=== PATIENT | male | born 1955 | race Caucasian/White ===

== ENCOUNTER 2021-11-23 18:44 | Inpatient (IN) | payer MEDICARE, SELFPAY ==
[2021-11-23] VITALS (20 sets, daily range): BP systolic 107–178; BP diastolic 65–105; PULSE 70–108; RESP 10–21; TEMP 36.3–36.6; O2SAT 90–98; BMI 33.5
--- NOTE | 2021-11-23 18:45 | XRR_ITS ---
PROCEDURE INFORMATION: Exam: XR Chest Exam date and time: 11/23/2021 6:51 PM Age: 66 years old Clinical indication: Pain; Angina pectoris; Additional info: Stemi TECHNIQUE: Imaging protocol: Radiologic exam of the chest. Views: 1 view. COMPARISON: CR Chest 1 [place] [id number] 02/03/2016 6:39 PM FINDINGS: Lungs: There are normal lung volumes without confluent interstitial or airspace opacities. Age-related interstitial prominence is seen in the lungs. Pleural spaces: There are no pleural effusions or pneumothorax. Heart/Mediastinum: The heart size is normal. There is a mildly tortuous thoracic aorta. The trachea is in the midline. Bones/joints: Small degenerative osteophytes and mild degenerative disc disease changes are seen in the lower thoracic spine. Soft tissues: Multiple external densities are seen overlying the chest, limiting assessment. XR/XR chest 1V portable [id number] IMPRESSION: No chest radiographic evidence of acute cardiopulmonary disease.
--- NOTE | 2021-11-23 18:45 | ECG_ITS ---
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 Measurements Intervals [place] Rate: 104 P: 27 [place]: 145 QRS: 34 QRSD: 127 T: 0 QT: 345 QTc: 454 Interpretive Statements SINUS TACHYCARDIA WITH OCCASIONAL VENTRICULAR PREMATURE COMPLEXES INFERIOR MYOCARDIAL INFARCTION , POSSIBLY ACUTE [40+ ms Q WAVE AND/OR ST/T ABNORMALITY IN II/aVF] ACUTE DC Compared to ECG 02/04/2016 02:05:10 Ventricular premature complex(es) now present Myocardial infarct finding now present Sinus bradycardia no longer present Right bundle-branch block no longer present T-wave abnormality no longer present Possible ischemia no longer present Electronically Signed On 11-25-2021 8:01:38 CDT by Carin Maria M.D. [id number]
--- NOTE | 2021-11-23 18:52 | W.ED.CHESTPA ---
HPI - Chest Pain General: Chief Complaint: Chest Pain Stated Complaint: STEMI Time Seen by Provider: 11/23/21 18:47 Source: patient and EMS History of Present Illness: 66-year-old male with a history of coronary disease. He presents with chest discomfort since around 10 AM this morning. It started at rest. He tells me he has a history of 7 stents in his heart, the last one was put in here in 2014. He was called in as a STEMI alert from the field, with ST elevation in leads II, III and aVF on his EKG. his pain has eased after nitroglycerin and aspirin in the field. He still having some tightness. MD complaint: chest pain Pertinent past history: coronary artery disease Onset (ago): hour(s) Timing of current episode: constant Prior episodes: Yes Onset: during rest Pain location: substernal Quality: tightness Relieving factors: nitroglycerin Associated symptoms: Reports dyspnea and nausea; Deny abdominal pain, diaphoresis, fever(s), leg edema or vomiting Review of Systems Const: Denies: fever(s) or diaphoresis ENMT: Denies: throat pain Card: Reports: chest pain Resp: Reports: dyspnea; Denies: productive cough or non-productive cough GI: Reports: nausea and diarrhea; Denies: abdominal pain or vomiting PFS ED PFSH: Medical History CAD (coronary artery disease) Hypertension Family History Other Diabetes Social History Smoking and tobacco status: current every day smoker Physical Exam Const: GENERAL APPEARANCE: cooperative and ill appearing HENMT: COMMON NORMALS: normocephalic, atraumatic and Normal external nose present HEAD & SCALP: normocephalic and atraumatic NOSE: Normal external nose present Eye: COMMON NORMALS: Equal, round and reactive pupils present and EOMs intact bilaterally PUPIL: Yes Equal, round and reactive pupils present Chest: CHEST: Yes Symmetrical chest wall rise Resp: COMMON NORMALS: normal respiratory effort, No use of accessory muscles and clear to auscultation bilaterally AUSCULTATION: clear to auscultation bilaterally Cardio: COMMON NORMALS: regular rhythm RATE: tachycardic RHYTHM: regular rhythm GI: COMMON NORMALS: Normal to inspection, nondistended, normoactive bowel sounds present, Soft to palpation and non-tender PALPATION: Yes Soft to palpation Extremity: GENERAL: Yes edema (Mild) Neuro: RINA COMA SCALE: document GCS findings [facility] coma scale eye opening: Spontaneous Rina coma scale verbal response: Orientated Rina coma scale motor response: Obey commands [facility] coma scale total score: 15 Course Consultations: Consultation #1: damaris Vital Signs: Vital signs: Vital Signs Temperature 97.4 F L 11/23/21 20:00 Pulse Rate 75 11/23/21 21:11 Respiratory Rate 18 11/23/21 21:00 Blood Pressure 123/72 11/23/21 21:00 Pulse Oximetry 93 11/23/21 21:00 Oxygen Delivery Me thod 11/23/21 21:00 MDM - Chest Pain Medical Decision Making 66-year-old gentleman with a history of coronary disease, having an anterior ST elevation [place]. Cardiology was consulted on the patient's arrival by phone. STEMI alert had been called prior to arrival. Cath team is on their way in. the patient remains stable currently. His heart rate is 100, sinus. Blood pressure is 161/95 saturations are 99% on room air. His respirations are 22 on the monitor. Labs are pending. Lab Data : 11/23/21 18:33 11/23/21 18:33 Laboratory Results WBC 11.0 10^3/uL (4.0-10.0) H 11/23/21 18:33 RBC 5.45 10^6/uL (4.1-5.3) H 11/23/21 18:33 Hgb 15.5 g/dL (11.7-16.6) 11/23/21 18:33 Hct 47.3 % (42.0-52.0) 11/23/21 18:33 MCV 86.8 fl (80-94) 11/23/21 18:33 MCH 28.4 pg (28.0-34.0) 11/23/21 18: MCHC 32.8 g/dL (30.0-36.0) 11/23/21 18:33 RDW 14.1 % (12.1-15.1) 11/23/21 18:33 Plt Count 315 10^3/cmm (130-400) 11/23/21 18: MPV 10.8 fL (7.4-10.4) H 11/23/21 18:33 Neut % (Auto) 70.1 % 11/23/21 18: Lymph % (Auto) 19.9 % 11/23/21 18: [place] % (Auto) 8.2 % 11/23/21 18: Eos % (Auto) 0.8 % 11/23/21 18: Baso % (Auto) 0.5 % 11/23/21 18: Neut # (Auto) 7.73 10^3/uL (1.8-7.7) H 11/23/21 18: Lymph # (Auto) 2.2 10^3/uL (0.8-4.8) 11/23/21 18: [place] # (Auto) 0.9 10^3/uL (0.2-0.9) 11/23/21 18: Eos # (Auto) 0.1 10^3/uL (0.0-0.8) 11/23/21 18: Baso # (Auto) 0.1 10^3/uL (0.0-0.1) 11/23/21 18: Nucleated RBC % (auto) 0 % 11/23/21 18: Nucleated RBCs # 0.0 /100WBC 11/23/21 18: PT 12.10 SECONDS (12.1-14.9) 11/23/21 18: INR 0.87 (0.8-1.2) 11/23/21 18: APTT 36.8 SECONDS (23.9-36.7) H 11/23/21 18:33 Sodium 133 mmol/L (136-145) L 11/23/21 18:33 Potassium 4.4 mmol/L (3.5-5.1) 11/23/21 18: Chloride 94 mmol/L (98-107) L 11/23/21 18: Carbon Dioxide 22 mmol/L (22-29) 11/23/21 18:33 Anion Gap 21.4 (5-19) H 11/23/21 18:33 BUN 7 mg/dL (8-23) L 11/23/21 18:33 Creatinine 0.8 mg/dL (0.7-1.2) 11/23/21 18:33 GFR Calculation 97.0 mL/min (90-130) 11/23/21 18:33 Glucose 171 mg/dL (65-115) H 11/23/21 18:33 POC Glucose 173 mg/dL (70-110) H 11/23/21 18:54 Calculated Osmolality 278 mOsm/kg (285-295) L 11/23/21 18:33 Calcium 9.7 mg/dL (8.5-10.5) 11/23/21 18:33 Total Bilirubin 0.6 mg/dL (0.15-1.2) 11/23/21 18:33 AST 40 U/L (0-40) 11/23/21 18:33 ALT 29 U/L (0-41) 11/23/21 18:33 Alkaline Phosphatase 116 U/L (40-130) 11/23/21 18:33 Troponin T Baseline 53 ng/L (0-15) H 11/23/21 18:33 NT-Pro-B Natriuret Pep 129 pg/mL (0-125) H 11/23/21 18:33 Total Protein 6.9 g/dL (6.6-8.7) 11/23/21 18:33 Albumin 4.7 g/dL (3.5-5.2) 11/23/21 18:33 Globulin 2.2 g/dL (1.3-4.6) 11/23/21 18:33 Discharge Plan Discharge Patient Disposition: Admitted As Inpatient Admit Provider: Travis Zaidi Clinical Impression: ST elevation myocardial infarction (STEMI) Condition: Stable Coding Level of Care Code ED Admissions Director for Lanette Goldsmith
--- NOTE | 2021-11-23 18:55 | XACV_ITS ---
Exam Room: ED.ROOM11 Ht: 170 cm Wt: 97 kg BSA: 2.18 m2 Gender: Male : 1955 Any Known Allergies: Other Exam Priority: Routine Procedure(s): Procedure Description: Diagnostic procedure Procedure Description: PCI procedure Procedure Description: PTCA Procedure Description: Coronary Angiography Diagnostic Cath Status: Emergency Diagnostic Findings * 66 year old male with past medical history of coronary artery disease, hypertension, current smoker who has not been taking any medications for the last 2 years has presented to the hospital with 8 to 9 hours of chest pain. It started at 1 AM at rest. It got worse in the evening about 1 to 2 hours prior to hospital presentation and he called EMS. He was found to have ST elevations in inferior leads. Cardiac Conservation Science Teacher was emergently activated and patient was brought to the Conservation Science Teacher. * There is thombotic subtotal occlusion of mid RCA stent. FREDDIE: 1 flow. * Left Main has no significant disease. * Left Anterior Descending has mild luminal irregularities. * Circumflex has no significant disease. * Coronary angiography shows right dominance. PCI Status: Emergency PCI Indication: Immediate PCI for STEMI Interventional Findings * Procedure Detail: We engaged the RCA with JR4 guide catheter. IV heparin was administered to maintain ACT above 250 S. 0.014 run-through guidewire was used to cross thrombotic mid RCA stent. We dilated the stent with 4.0 x 12 mm NC balloon. This was followed by dilation with 4.5 x 8 mm NC balloon. At this time final angiogram was performed that showed excellent stent expansion, minimal residual stenosis and FREDDIE-3 flow. Guidewire and guide catheter were removed. Patient left the Conservation Science Teacher in a stable condition.. * Mid Right Coronary Artery: 99% stenosis treated with a MDT NC EUPHORA RX [id number] BALLOON, and MDT NC EUPHORA RX [id number] BALLOON. 10% residual stenosis, FREDDIE: 3 flow. Conclusions 1. There is subtotal occlusion of mid RCA stent. S/p successful revascularization with balloon angioplasty. . 2. Mid Right Coronary Artery was treated with a Balloon, and Balloon. Recommendations * Transfer to ICU. * Order echocardiogram. * Dual antiplatelet therapy with aspirin and Plavix for at least 1 year. * High intensity statin therapy. * Outpatient cardiology follow-up in 4-week. Interventional RX Recommendation: PCI w/o planned CABG Diagnostic RX Recommendation: PCI w/o planned CABG Anticoagulation: Heparin Pressures Phase:Rest AO : 179 / 113 ( 138 ) @ 2:52:25 PM 156 / 115 ( 135 ) @ 2:52:25 PM 69 / 58 ( 63 ) @ 2:52:25 PM 110 / 83 ( 95 ) @ 2:52:25 PM Clinical Evaluation EBL: 5mL-10mL Procedural Details Pre-Procedure Time Out. Identified patient by full name and date of as verbalized by the patient/guarantor. Procedure started. Does the consent match the physician's order: N/A Emergent. Accurate & Complete Informed Consent: N/A Emergent. Inpatient/Outpatient History & Physical on Chart: N/A Emergent. If H&P is completed, is and addenduem needed: N/A Emergent; If yes, is the addendum complete: N/A Emergent. Visualize and Verify Site with Patient/Guarantor: N/A. Relevant Radiology Images available: N/A Emergent. Pre-op teaching completed and patient verbalized understanding. The risks, benefits, and alternatives of sedation and/or procedure were discussed by physician. The patient agrees to continue. [facility] Clinical Fraility Score: 3: Managing Well. Conservation Science Teacher Indications: ACS <= 24 hours. Chest Pain Symptom Assessment: Atypical Angina. Cardiovascular Instability: Yes, if yes, Persistant Ischemic Symptoms. Correct patient, site and procedure confirmed by cath team. Current diagnosis: STEMI. PERRLA. Strong, equal hand ladle patcher bilaterally. Lungs clear x 5 lobes. IV Site on Arrival: 18 gauge in the left anticubital. Oxygen started at 2liters/min via nasal canula. right groin was prepped with chloroprep then draped in the usual sterile fashion. right radial was prepped with chloroprep then draped in the usual sterile fashion. Physician notified. Baseline sample Acquired. HR: 91 BPM. Physician arrived. Physician scrubbed in. Immediate Pre-Procedure Time Out. Correct Patient: N/A Emergent; Correct Procedure: N/A Emergent; Correct Site: N/A Emergent; Correct Patient Position: N/A Emergent; Correct Supplies: N/A Emergent; Dried Flammable Prep: N/A Emergent; Blood Products Available: N/A Emergent;. Lidocaine 1% infiltrated to the right radial. Arterial access obtained. 6 gabonese JR 4 guide catheter was inserted over the wire. Current Diagnosis : STEMI. Runthrough guidewire was advanced through the guide catheter to lesion in the mid RCA. PCI Indication: STEMI. Inflation number : 1 A MDT NC EUPHORA RX [id number] BALLOON was prepped and advanced across the Mid RCA , then inflated to 18 LAAR for 0:31 seconds. Results checked. Balloon out. Guideliner inserted OTW. PCI Indication : Immediate PCI for STEMI. Inflation number : 2 A MDT NC EUPHORA RX [id number] BALLOON was prepped and advanced across the Mid RCA , then inflated to 12 LARA for 0:19 seconds. Inflation number: 3 The MDT NC EUPHORA RX 4.02K60FO BALLOON was reinflated across the Mid RCA, to 16 LARA for 0:12 seconds. Inflation number: 4 The MDT NC EUPHORA RX [id number] BALLOON was reinflated across the Mid RCA, to 16 LARA for 0:15 seconds. Inflation number: 5 The MDT NC EUPHORA RX 4.49D49MU BALLOON was reinflated across the Mid RCA, to 18 LARA for 0:12 seconds. Results checked. Balloon and Guideliner out OTW. Wire and Guide catheter out. A 5 gabonese JL3.5 catheter in over wire. Multiple views taken of left coronary artery. ACT drawn. Results seconds. Therapeutic limits - pre-heparin administration 90-150 seconds and monitoring heparin during a vascular procedure >250 seconds. Catheter removed over the standard wire. A TR Band was successful obtaining hemostatsis at the Right Radial artery insertion site. Post Procedure: Pulses reassessed and unchanged. PERRLA. Strong, equal hand ladle patcher bilaterally. No VTE prophylaxis required. Medication's Wasted: Lidocaine 1% = 2 mL. Medication's Wasted: Nitro = 49.8 mg. Medication's Wasted: Heparin = 2000 units. Post-op diagnosis: CAD. Complications: None. Estimated blood loss: 5mL-10mL. Responsiveness - Normal response to verbal stimuli; alert and oriented, PERRLA. Airway - Unaffected, no intervention required; spontaneous ventilation. Circulation: W/N/L, pulses unchanged. Nausea/Vomiting: No. Procedure completed. Patient transferred by wheelchair to ICU. Vital chart was stopped. Access Site Site: Right Radial artery Sheath Size: 6 Fr Hemostasis Method: TR Band Hemostasis Success: Successful Procedure Medications Start: 7:19 PM Stop: 7:19 PM Medication: Versed Amount: 1 mg Route: I.V. Start: 7:20 PM Stop: 7:20 PM Medication: Fentanyl Amount: 50 mcg Route: I.V. Start: 7:20 PM Stop: 7:20 PM Medication: Nitrogylcerin Amount: 200 mcg Route: I.A. Start: 7:25 PM Stop: 7:25 PM Medication: Heparin Amount: 5000 units Route: I.V. Start: 7:31 PM Stop: 7:31 PM Medication: 0.9% Saline Amount: 250 ml Route: I.V. bolus Start: 7:48 PM Stop: 7:48 PM Medication: Heparin Amount: 4000 units Route: I.V. I, the attending physician, have reviewed and verified all procedure medications. Yes, all medications given per verbal order History/Risk Factors Hypertension: No Dyslipidemia: No Peripheral Arterial Disease (PAD): No Myocardial Infarction (DC): Yes Obesity: No Renal Disease: No Tobacco Use: Current/Recent(w/in 1 year) Prior Interventions PCI: Yes CABG: No Valve Surgery: No Date of PCI: 02/12/2016 Report Signatures Finalized by Travis Zaidi MD on 12/04/2021 12:47 PM
[2021-11-23 18:57] LABS: Basophils # 0.1 10^3/uL (0.0-0.1); Basophils % 0.5 %; Eosinophils # 0.1 10^3/uL (0.0-0.8); Eosinophils % 0.8 %; Hematocrit 47.3 % (42.0-52.0); Hemoglobin 15.5 g/dL (11.7-16.6); Lymphocytes # 2.2 10^3/uL (0.8-4.8); Lymphocytes % 19.9 %; Mean Corpuscular HGB Conc 32.8 g/dL (30.0-36.0); Mean Corpuscular Hemoglobin 28.4 pg (28.0-34.0); Mean Corpuscular Volume 86.8 fl (80-94); Mean Platelet Volume 10.8 fL (7.4-10.4); Monocytes # 0.9 10^3/uL (0.2-0.9); Monocytes % 8.2 %; Neutrophils # 7.73 10^3/uL (1.8-7.7); Neutrophils % 70.1 %; Nucleated Red Blood Cells % 0 %; Platelet Count 315 10^3/cmm (130-400); Red Blood Count 5.45 10^6/uL (4.1-5.3); Red Cell Distribution Width 14.1 % (12.1-15.1)
[2021-11-23 18:58] LABS: Glucose Point of Care 173 mg/dL (70-110)
[2021-11-23] MEDS: sodium chloride 0.9% 1,000 ML 999 ML IV (18:58)
[2021-11-23] MEDS: heparin 5,000 unit/mL INJ 1 mL 4000 UNIT IVP (18:58)
[2021-11-23] MEDS: sodium chloride 0.9% 500 ML 999 ML IV (18:59)
[2021-11-23] MEDS: ticagrelor 90 mg Tablet 180 MG PO (18:59)
[2021-11-23] MEDS: morphine 4 mg/mL SDV 1 mL IVP (19:04)
[2021-11-23] MEDS: ondansetron 2 mg/ML SDV 2 mL 4 MG IVP (19:04)
[2021-11-23 19:08] LABS: INR 0.87 (0.8-1.2)
[2021-11-23 19:09] LABS: Partial Thromboplastin Time 36.8 SECONDS (23.9-36.7)
--- NOTE | 2021-11-23 19:10 | PM.HP ---
Providers/Chief Complaint Primary Care Provider: Loyda Gregorio MD Chief Complaint: STEMI History of Present Illness Brice Torres is a 66 year old male with past medical history of coronary artery disease, hypertension, current smoker who has not been taking any medications for the last 2 years has presented to the hospital with 8 to 9 hours of chest pain. It started at 1 AM at rest. It got worse in the evening about 1 to 2 hours prior to hospital presentation and he called EMS. He was found to have ST elevations in inferior leads. Cardiac Make Up Man was emergently activated and patient was brought to the Make Up Man. Coronary angiogram revealed critical 99% stent thrombosis/in-stent restenosis of mid RCA stent. Balloon angioplasty was performed and flow was reestablished. Another stent was not deployed because he has multiple layers of stents already. Patient left the Make Up Man in a stable condition. Review of Systems Narrative: CONSTITUTIONAL: No fever chills weight loss or gain or night sweats. [] HEENT: Normocephalic, atraumatic.[] RESPIRATORY: No cough, sputum, hemoptysis or wheezing.[] CARDIOVASCULAR: Chest pain GI: no nausea vomiting diarrhea. [] CONCILIATION COURT JUDGE: No numbness, tingling, weakness or loss of function in any part of the body. [] MUSCULOSKELETAL: No knee or joint pain or rashes. [] PFSH Acute PFSH: Medical History CAD (coronary artery disease) Hypertension Family History Other Diabetes Social History Smoking and tobacco status: current every day smoker Vitals/I&O/Wt Last Vital Signs Temp 97.9 F 11/23/21 18:45 Pulse 108 H 11/23/21 18:45 Resp 18 11/23/21 18:45 BP 161/95 11/23/21 18:45 Pulse Ox 97 11/23/21 18:45 O2 Del Method 11/23/21 18:45 Weight last 48 hrs Weight 214 lb Physical Exam Narrative: CONSTITUTIONAL: No fever chills weight loss or gain or night sweats. [] HEENT: Normocephalic, atraumatic.[] RESPIRATORY: No cough, sputum, hemoptysis or wheezing.[] CARDIOVASCULAR: No shortness of breath, chest pain, PND, orthopnea, lower extremity edema, presyncope or syncope. [] GI: no nausea vomiting diarrhea. [] CONCILIATION COURT JUDGE: No numbness, tingling, weakness or loss of function in any part of the body. [] MUSCULOSKELETAL: No knee or joint pain or rashes. [] Data : 11/23/21 18:33 11/23/21 18:33 A&P Assessment and plan (1) ST elevation myocardial infarction (STEMI): Status: Acute (2) Hypertension: Status: Acute (3) CAD (coronary artery disease): Status: Acute Plan Patient presented with acute ST elevation [place] and was brought to the Make Up Man emergently. Has been loaded with aspirin and Brilinta. Coronary angiogram revealed critical 99% in-stent stenosis/stent thrombosis in the mid RCA. Successfully revascularized with balloon angioplasty. New stent not deployed given multiple layers of stents in the vessel. Will need dual antiplatelet therapy for at least 1 year. High intensity statin therapy. Will start beta-jose rafael therapy and VOLODYMYR inhibitor Order echocardiogram. Transfer to ICU. Attestations Medical Necessity Statement*: Care expected to cross 2 midnights. Patient has presented with acute ST elevation [place] and underwent successful revascularization of mid RCA with CHRIS x1. Coding Level of Care Code Acute Mental Health Specialist for Lanette Goldsmith Diagnoses ST elevation myocardial infarction (STEMI) I21.3 Hypertension I10 CAD (coronary artery disease) I25.10
[2021-11-23 19:20] LABS: Troponin(5th) Baseline 53 ng/L (0-15)
[2021-11-23 19:25] LABS: Alanine Aminotransferase 29 U/L (0-41); Albumin Level 4.7 g/dL (3.5-5.2); Alkaline Phosphatase 116 U/L (40-130); Anion Gap 21.4 (5-19); Aspartate Amino Transferase 40 U/L (0-40); Blood Urea Nitrogen 7 mg/dL (8-23); Calcium 9.7 mg/dL (8.5-10.5); Carbon Dioxide 22 mmol/L (22-29); Chloride 94 mmol/L (98-107); Globulin 2.2 g/dL (1.3-4.6); Glucose 171 mg/dL (65-115); NT Pro B Type Natriuretic Pept 129 pg/mL (0-125); Osmolality Calculated 278 mOsm/kg (285-295); Potassium 4.4 mmol/L (3.5-5.1); Sodium 133 mmol/L (136-145); Total Bilirubin 0.6 mg/dL (0.15-1.2); Total Protein 6.9 g/dL (6.6-8.7)
--- NOTE | 2021-11-23 20:24 | USCV_ITS ---
Brice Torres Age: 66 Gender: M : 1955 Exam Date: 11/23/2021 21:45 Ordering Phys: Travis Zaidi M.D ([email or web address]) Technologist: Rick Kinney [place] [facility] [place]: [place]stem[place] BP: / HR: 89 Rhythm: Sinus Technical Quality: Adequate MEASUREMENTS (Male / Female) Normal Values 2D ECHO LV Diastolic Diameter PLAX 5.3 cm 4.2 - 5.9 / 3.9 - 5.3 cm LV Systolic Diameter PLAX 4.1 cm IVS Diastolic Thickness 1.3 cm 0.6 - 1.0 / 0.6 - 0.9 cm IVS Systolic Thickness 1.4 cm LVPW Diastolic Thickness 1.5 cm 0.6 - 1.0 / 0.6 - 0.9 cm LVPW Systolic Thickness 1.7 cm LVOT Diameter 2.0 cm LV Ejection Fraction 2D Teich 47.3 % LV Ejection Fraction MOD 2C 53.4 % LV Ejection Fraction 2C AL 54.5 % LA Diameter 4.3 cm IVC Diameter 1.9 cm M-MODE Aortic Annulus Diameter 4.1 cm LA Ao Ratio MM 0.9 MV E Point Septal Separation 1.6 cm DOPPLER AV Peak Velocity 115.0 cm/s LVOT Peak Velocity 75.0 cm/s AV Area Cont Eq vti 2.1 cm squared AV Area Cont Eq pk 2.0 cm squared MV Area PHT 5.0 cm squared Mitral E to A Ratio 0.5 MV E' Velocity 24.5 cm/s Mitral E to MV E' Ratio 10.9 Mitral E to LV E' Lateral Ratio 12.1 Mitral E to LV E' Septal Ratio 10.2 TR Peak Velocity 102.8 cm/s TR Peak Gradient 4.2 mmHg TV Peak E Velocity 73.0 cm/s Right Atrial Pressure 3.0 mmHg Pulmonary Artery Systolic Pressu 7.2 mmHg PV Peak Velocity 104.0 cm/s FINDINGS Left Ventricle Left ventricle is normal in size. LV systolic function is mildly reduced with EF of 40 to 45%. Moderate to severe hypokinesis of inferior and inferolateral mirza. Grade 1 diastolic dysfunction Right Ventricle Normal size and function Right Atrium Normal in size Left Atrium Normal in size Mitral Valve Structurally normal mitral valve. Aortic Valve Aortic valve is thickened. No significant aortic stenosis or regurgitation. Tricuspid Valve Trace tricuspid regurgitation. Insufficient TR jet to calculate RVSP. Pulmonic Valve Not visualized Pericardium Normal Aorta Normal in size IVC CONCLUSIONS LV systolic function is mildly reduced with EF of 40 to 45%. Moderate to severe hypokinesis of inferior and inferolateral mirza. Grade 1 diastolic dysfunction. Structurally normal mitral valve. Aortic valve is thickened. Trace tricuspid regurgitation. Compared to prior echocardiogram from 2016, LV systolic function has mildly reduced now. Travis Zaidi MD (Electronically Signed) Final Date: 24 November 2021 11:04 S
--- NOTE | 2021-11-23 20:45 | ECG_ITS ---
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 Measurements Intervals [place] Rate: 78 P: 50 LA: 154 QRS: -55 QRSD: 119 T: -89 QT: 440 QTc: 502 Interpretive Statements SINUS RHYTHM WITH OCCASIONAL VENTRICULAR PREMATURE COMPLEXES RIGHT BUNDLE BRANCH BLOCK INFERIOR MYOCARDIAL INFARCTION , OF INDETERMINATE AGE MODERATE T-WAVE ABNORMALITY, CONSIDER LATERAL ISCHEMIA Compared to ECG 02/04/2016 02:05:10 Ventricular premature complex(es) now present Myocardial infarct finding now present Sinus bradycardia no longer present T-wave abnormality still present Possible ischemia still present Electronically Signed On 11-25-2021 8:10:37 CDT by Carin Maria M.D. [id number]
[2021-11-23] MEDS: sodium chloride 0.9% 1,000 ML 100 ML IV (20:51)
[2021-11-23] MEDS: metoprolol tartrate 25 mg Tablet PO (20:51)
[2021-11-23] MEDS: atorvastatin 40 mg Tablet 80 MG PO (20:51)
[2021-11-23 21:26] LABS: Troponin 5 2HR 3009 ng/L (0-15); Troponin 5 2HR Delta 2956 ABS# (0-10)
[2021-11-23 21:34] LABS: Estmated Average Glucose 154
--- NOTE | 2021-11-23 23:33 | PC.NURSE ---
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 No reports of chest pain or discomfort. V/S stable. NS infusing at 100mL/h to left forearms IV. TR band noted to right wrist with 13mL air reported to be in TR band. Placed on site monitor, SR with frequent PVCs noted. 2115 -- 2mL air removed from right radial TR band. 2130 -- 2mL air removed from right radial TR band. 2145 -- 2mL air removed from right radial TR band. 2205 -- 2mL air removed from right radial TR band. 2220 -- 2mL air removed from right radial TR band. 2245 -- 3mL air removed from right radial TR band. No bleeding or hematoma noted. 2315 -- TR band removed from right wrist, no bleeding or hematoma noted. Small elastic bandage placed over puncture site.
[2021-11-24] VITALS (26 sets, daily range): BP systolic 103–151; BP diastolic 50–98; PULSE 56–95; RESP 9–28; TEMP 36.7–36.8; O2SAT 87–98
--- NOTE | 2021-11-24 00:45 | ECG_ITS ---
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 Measurements Intervals [place] Rate: 65 P: 24 UT: 155 QRS: -43 QRSD: 121 T: 262 QT: 453 QTc: 474 Interpretive Statements SINUS RHYTHM RIGHT BUNDLE BRANCH BLOCK INFERIOR MYOCARDIAL INFARCTION , OF INDETERMINATE AGE MODERATE T-WAVE ABNORMALITY, CONSIDER LATERAL ISCHEMIA Compared to ECG 11/23/2021 23:04:37 Ventricular premature complex(es) no longer present Left anterior fascicular block no longer present Myocardial infarct finding still present T-wave abnormality still present Possible ischemia still present Electronically Signed On 11-25-2021 8:09:46 CDT by Carin Maria M.D. [id number]
[2021-11-24 04:03] LABS: Basophils # 0.1 10^3/uL (0.0-0.1); Basophils % 0.5 %; Eosinophils # 0.1 10^3/uL (0.0-0.8); Eosinophils % 0.7 %; Hematocrit 41.8 % (42.0-52.0); Hemoglobin 13.5 g/dL (11.7-16.6); Lymphocytes # 2.6 10^3/uL (0.8-4.8); Lymphocytes % 21.7 %; Mean Corpuscular HGB Conc 32.3 g/dL (30.0-36.0); Mean Corpuscular Hemoglobin 28.7 pg (28.0-34.0); Mean Corpuscular Volume 88.7 fl (80-94); Mean Platelet Volume 10.8 fL (7.4-10.4); Monocytes % 8.4 %; Neutrophils # 8.12 10^3/uL (1.8-7.7); Neutrophils % 68.4 %; Nucleated Red Blood Cells % 0 %; Platelet Count 249 10^3/cmm (130-400); Red Blood Count 4.71 10^6/uL (4.1-5.3); Red Cell Distribution Width 14.2 % (12.1-15.1); White Blood Count 11.9 10^3/uL (4.0-10.0)
[2021-11-24 04:27] LABS: Anion Gap 15.2 (5-19); Blood Urea Nitrogen 7 mg/dL (8-23); Carbon Dioxide 26 mmol/L (22-29); Chloride 102 mmol/L (98-107); Glomerular Filtration Rate 113.2 mL/min (90-130); Glucose 154 mg/dL (65-115); Osmolality Calculated 289 mOsm/kg (285-295); Potassium 4.2 mmol/L (3.5-5.1); Sodium 139 mmol/L (136-145)
[2021-11-24] MEDS: sodium chloride 0.9% 1,000 ML 100 ML IV ×2 (06:43→16:34)
[2021-11-24] MEDS: clopidogrel 300 mg Tablet 600 MG PO (06:43)
[2021-11-24] MEDS: metoprolol tartrate 25 mg Tablet PO ×2 (08:45→20:07)
[2021-11-24] MEDS: lisinopril 10 mg Tablet PO (08:46)
--- NOTE | 2021-11-24 10:21 | PM.PN ---
Subjective Subjective: Patient is stable. Denies chest pain or shortness of breath. Vitals/I&O/Wt Last Vital Signs Temp 98.2 F 11/24/21 04:01 Pulse 66 11/24/21 06:00 Resp 24 H 11/24/21 06:00 BP 107/50 11/24/21 06:00 Pulse Ox 95 11/24/21 06:00 O2 Del Method 11/24/21 06:00 11/23/21 11/24/21 11/24/21 22:59 06:59 14:59 Intake Total 200 / 200 1186.667 / 1386.667 240 / 240 Output Total 450 / 450 375 / 825 350 / 350 Balance -250 / -250 811.667 / 561.667 -110 / -110 Weight last 48 hrs Weight 213 lb 12.8 oz Weight 214 lb Physical Exam Narrative: GENERAL: Patient is alert, awake and oriented x3. [] NECK: No jugular vein distension. [] HEENT: No cyanosis. No icterus. No pallor. [] HEART: Regular S1 and S2. No murmur, rub or gallop. [] LUNGS: Clear to auscultate bilaterally. [] ABDOMEN: Soft, nontender and nondistended. Positive bowel sounds. No guarding, rebound or tenderness. [] CENTRAL NERVOUS SYSTEM: Grossly nonfocal. [] EXTREMITIES: Lower extremities with 1+ edema bilaterally. Pulses palpable in the lower extremities, both dorsalis pedis and posterior tibial. [] Data : 11/24/21 03:25 11/24/21 03:25 A&P Assessment and plan (1) ST elevation myocardial infarction (STEMI): Status: Acute (2) Hypertension: Status: Acute (3) CAD (coronary artery disease): Status: Acute Plan Patient presented with acute ST elevation NM and was brought to the Official Court Interpreter emergently. He was loaded with aspirin and Brilinta. Coronary angiogram revealed critical 99% in-stent stenosis/stent thrombosis in the mid RCA. Successfully revascularized with balloon angioplasty. New stent not deployed given multiple layers of stents in the vessel. Patient's brilinta has been switched to plavix. We will continue aspirin and plavix Continue high intensity statin therapy ECHO shows mildly reduced LV function. HbA1C is 7 consistent with diabetes. We will start metformin as outpatient If patient stays stable by tomorrow, will plan on discharge tomorrow Attestations Medical Necessity Statement*: Care expected to cross 2 midnights. Patient presented last night with acute inferior wall STEMI and underwent successful revascularization with balloon angioplasty of mid RCA stent. Coding Level of Care Code Acute Circulation Sales Representative for Lanette Goldsmith Diagnoses ST elevation myocardial infarction (STEMI) I21.3 Hypertension I10 CAD (coronary artery disease) I25.10
[2021-11-24] MEDS: nicotine 21 mg Patch 1 PATCH TRANSDERMA (11:57)
[2021-11-24] MEDS: aspirin 81 mg EC Tablet PO (14:14)
[2021-11-24] MEDS: atorvastatin 40 mg Tablet 80 MG PO (20:07)
[2021-11-25] VITALS (13 sets, daily range): BP systolic 100–143; BP diastolic 57–100; PULSE 65–85; RESP 13–31; TEMP 36.6–36.7; O2SAT 90–98; BMI 32.8
[2021-11-25] MEDS: sodium chloride 0.9% 1,000 ML 100 ML IV (02:45)
[2021-11-25 06:10] LABS: Basophils # 0.1 10^3/uL (0.0-0.1); Basophils % 0.4 %; Eosinophils # 0.1 10^3/uL (0.0-0.8); Eosinophils % 0.6 %; Hemoglobin 13.4 g/dL (11.7-16.6); Lymphocytes # 2.5 10^3/uL (0.8-4.8); Mean Corpuscular HGB Conc 31.9 g/dL (30.0-36.0); Mean Corpuscular Hemoglobin 28.8 pg (28.0-34.0); Mean Corpuscular Volume 90.1 fl (80-94); Mean Platelet Volume 10.8 fL (7.4-10.4); Monocytes % 7.3 %; Neutrophils # 10.14 10^3/uL (1.8-7.7); Neutrophils % 73.3 %; Nucleated Red Blood Cells % 0 %; Platelet Count 225 10^3/cmm (130-400); Red Blood Count 4.66 10^6/uL (4.1-5.3); Red Cell Distribution Width 14.6 % (12.1-15.1); White Blood Count 13.8 10^3/uL (4.0-10.0)
[2021-11-25 06:35] LABS: Anion Gap 14.1 (5-19); Blood Urea Nitrogen 6 mg/dL (8-23); Calcium 9.1 mg/dL (8.5-10.5); Carbon Dioxide 24 mmol/L (22-29); Chloride 102 mmol/L (98-107); Glomerular Filtration Rate 135.2 mL/min (90-130); Glucose 122 mg/dL (65-115); Osmolality Calculated 281 mOsm/kg (285-295); Potassium 4.1 mmol/L (3.5-5.1); Sodium 136 mmol/L (136-145)
--- NOTE | 2021-11-25 07:12 | PC.NURSE ---
Shift Note Frequent safety and comfort rounds continue. Orders and/or nursing care completed as indicated. Patient monitored for response to intervention and treatment(s). Education provided includes diet and evening medications. Patient verbalized understanding of teaching. Patient had an uneventful shift, rested throughout the night. Remains alert/oriented x4, on room air. Voided 1200 mls of urine overnight with urinal. No wounds or skin issues noted at this time. Will continue to monitor.
--- NOTE | 2021-11-25 08:04 | PM.DCS ---
Discharge Providers Date of Admission: 11/23/21 19:54 Date of Discharge: November 25, 2021 Attending Provider at Admission: Travis Zaidi M.D Attending Provider at Discharge: Travis Zaidi M.D Primary Care Provider: Loyda Gregorio MD Diagnoses at Discharge Discharge Diagnosis (1) ST elevation myocardial infarction (STEMI): Status: Acute (2) Hypertension: Status: Acute (3) CAD (coronary artery disease): Status: Acute (4) Diabetes: Status: Acute Reason for Visit Reason for Visit: STEMI Brief History: 66 year old male with past medical history of coronary artery disease, hypertension, current smoker who has not been taking any medications for the last 2 years has presented to the hospital with 8 to 9 hours of chest pain.? It started at 1 AM at rest.? It got worse in the evening about 1 to 2 hours prior to hospital presentation and he called EMS.? He was found to have ST elevations in inferior leads.? Cardiac Aboriginal Ceremonial Celebrant was emergently activated and patient was brought to the [facility]. Coronary angiogram revealed critical 99% stent thrombosis/in-stent restenosis of mid RCA stent.? Balloon angioplasty was performed and flow was reestablished.? Another stent was not deployed because he has multiple layers of stents already.? Patient left the [facility] Celebr[facility] in a stable condition. Hospital Course Hospital Course Coronary angiogram revealed critical 99% stent thrombosis/in-stent restenosis of mid RCA stent.? Balloon angioplasty was performed and flow was reestablished.? Another stent was not deployed because he has multiple layers of stents already.? Patient underwent echocardiogram that showed mildly reduced LV systolic function. Patient stayed stable. HbA1c was 7 and demonstrated patient has diabetes. He will follow-up with primary care physician to initiate oral diabetes medicines. Physical Exam Narrative: GENERAL: Patient is alert, awake and oriented x3. [] NECK: No jugular vein distension. [] HEENT: No cyanosis. No icterus. No pallor. [] HEART: Regular S1 and S2. No murmur, rub or gallop. [] LUNGS: Clear to auscultate bilaterally. [] ABDOMEN: Soft, nontender and nondistended. Positive bowel sounds. No guarding, rebound or tenderness. [] CENTRAL NERVOUS SYSTEM: Grossly nonfocal. [] EXTREMITIES: Lower extremities with no edema bilaterally. Pulses palpable in the lower extremities, both dorsalis pedis and posterior tibial. [] Discharge Data Studies Completed and Pending Completed Studies During Hospitalization Category Date Time Status XR chest 1V portable [id number] Stat Exams 11/23/21 18:45 Completed CV. 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 Laboratory Results WBC 13.8 10^3/uL (4.0-10.0) H 11/25/21 05:54 Corrected WBC Cancelled 11/25/21 03:43 RBC 4.66 10^6/uL (4.1-5.3) 11/25/21 05:54 Hgb 13.4 g/dL (11.7-16.6) 11/25/21 05:54 Hct 42.0 % (42.0-52.0) 11/25/21 05:54 MCV 90.1 fl (80-94) 11/25/21 05:54 MCH 28.8 pg (28.0-34.0) 11/25/21 05:54 MCHC 31.9 g/dL (30.0-36.0) 11/25/21 05:54 RDW 14.6 % (12.1-15.1) 11/25/21 05:54 Plt Count 225 10^3/cmm (130-400) 11/25/21 05:54 MPV 10.8 fL (7.4-10.4) H 11/25/21 05:54 Gran % Cancelled 11/25/21 03:43 Neut % (Auto) 73.3 % 11/25/21 05:54 Lymph % (Auto) 18.0 % 11/25/21 05:54 Brule % (Auto) 7.3 % 11/25/21 05:54 Eos % (Auto) 0.6 % 11/25/21 05:54 Baso % (Auto) 0.4 % 11/25/21 05:54 Neut # (Auto) 10.14 10^3/uL (1.8-7.7) H 11/25/21 05:54 Lymph # (Auto) 2.5 10^3/uL (0.8-4.8) 11/25/21 05:54 Brule # (Auto) 1.0 10^3/uL (0.2-0.9) H 11/25/21 05:54 Eos # (Auto) 0.1 10^3/uL (0.0-0.8) 11/25/21 05:54 Baso # (Auto) 0.1 10^3/uL (0.0-0.1) 11/25/21 05:54 Absolute Gran (auto) Cancelled 11/25/21 03:43 Nucleated RBC % (auto) 0 % 11/25/21 05:54 Nucleated RBCs # 0.0 /100WBC 11/25/21 05:54 PT 12.10 SECONDS (12.1-14.9) 11/23/21 18:33 INR 0.87 (0.8-1.2) 11/23/21 18:33 APTT 36.8 SECONDS (23.9-36.7) H 11/23/21 18:33 Sodium 136 mmol/L (136-145) 11/25/21 05:54 Potassium 4.1 mmol/L (3.5-5.1) 11/25/21 05:54 Chloride 102 mmol/L (98-107) 11/25/21 05:54 Carbon Dioxide 24 mmol/L (22-29) 11/25/21 05:54 Anion Gap 14.1 (5-19) 11/25/21 05:54 BUN 6 mg/dL (8-23) L 11/25/21 05:54 Creatinine 0.6 mg/dL (0.7-1.2) L 11/25/21 05:54 GFR Calculation 135.2 mL/min (90-130) H 11/25/21 05:54 Glucose 122 mg/dL (65-115) H 11/25/21 05:54 POC Glucose 173 mg/dL (70-110) H 11/23/21 18:54 Estimat Average Glucose 154 11/23/21 18:33 Hemoglobin A1c 7.0 % (4.0-6.0) H 11/23/21 18:33 Calculated Osmolality 281 mOsm/kg (285-295) L 11/25/21 05:54 Calcium 9.1 mg/dL (8.5-10.5) 11/25/21 05:54 Total Bilirubin 0.6 mg/dL (0.15-1.2) 11/23/21 18:33 AST 40 U/L (0-40) 11/23/21 18:33 ALT 29 U/L (0-41) 11/23/21 18:33 Alkaline Phosphatase 116 U/L (40-130) 11/23/21 18:33 Troponin T Baseline 53 ng/L (0-15) H 11/23/21 18:33 Troponin T 120 Minute 3009 ng/L (0-15) H 11/23/21 20:50 Delta Troponin T 2956 ABS# (0-10) H* 11/23/21 20:50 NT-Pro-B Natriuret Pep 129 pg/mL (0-125) H 11/23/21 18:33 Total Protein 6.9 g/dL (6.6-8.7) 11/23/21 18:33 Albumin 4.7 g/dL (3.5-5.2) 11/23/21 18:33 Globulin 2.2 g/dL (1.3-4.6) 11/23/21 18:33 Vitals Last Vital Signs Temp 98.1 F 11/25/21 05:00 Pulse 77 11/25/21 06:00 Resp 21 H 11/25/21 06:00 BP 143/86 11/25/21 06:00 Pulse Ox 93 11/25/21 06:00 O2 Del Method 11/24/21 20:00 Discharge Plan Discharge Patient Disposition: Home Condition: Stable Prescriptions: New atorvastatin 40 mg Tablet 80 mg PO BEDTIME Qty: 90 3RF clopidogrel 75 mg Tablet 75 mg PO DAILY Qty: 90 3RF aspirin 81 mg Tablet,Delayed Release (Dr/Ec) 81 mg PO DAILY Qty: 90 2RF lisinopril 10 mg Tablet 10 mg PO DAILY Qty: 90 3RF metoprolol tartrate 25 mg Tablet 25 mg PO BID@0900,2100 Qty: 90 3RF Discharge Orders: Discharge Order (Routine); Ordered 11/25/21 Ordered By: Travis Zaidi Referrals: Loyda Gregorio MD [Primary Care Provider] - Travis Zaidi M.D [Physician] - 6 Weeks (at your appt with Yvonne she will make an appt with Dr Zaidi ) Yvonne Springer FNP [Nurse Practitioner] - 11/28/21 3:00 pm Discharge Diet: Diabetic Discharge Activity: Increase activity as tolerated Patient Instructions: Metoprolol (By mouth), Lisinopril (By mouth), Aspirin (By mouth), Atorvastatin (By mouth) (Lipitor), Clopidogrel (By mouth) (Plavix), Cardiac Disease Risk Factors, Chest Pain (DC), How to Stop Smoking (DC), Cigarette Smoking and Your Health (GEN), Cardiac Rehabilitation (DC), Opioid Safety, Quitting Smoking Discharge Attestations Time Spent in Discharge Care*: greater than 30 min Time Spent in Smoking Cessation: 3 to 10 minutes Quality Metrics Clinical Quality Measures [ No reported AMI, CVA or VTE this stay] Coding Level of Care Code Acute Chg FW DC note Diagnoses ST elevation myocardial infarction (STEMI) I21.3 Hypertension I10 CAD (coronary artery disease) I25.10 Diabetes E11.9
[2021-11-25] MEDS: clopidogrel 75 mg Tablet PO (08:19)
[2021-11-25] MEDS: aspirin 81 mg EC Tablet PO (08:19)
[2021-11-25] MEDS: lisinopril 10 mg Tablet PO (08:19)
[2021-11-25] MEDS: metoprolol tartrate 25 mg Tablet PO (08:22)
--- NOTE | 2021-11-25 10:10 | PC.NURSE ---
Patient is ready for discharge NUrse called his friend maryann and advised he is ready to be picked up. IV's removed. Activity, diet, new medication, and followup appointment education provided. Patient signature form signed.
== END 2021-11-25 10:22 | disposition home or self-care (01) | DRG 250 ==
LOC: ER 19:00 → CCL 19:09 → ICU 19:54
PROVIDERS: Emergency Medicine; Admitting Provider Internal Medicine; Emergency Provider Emergency Medicine; PCP Family Medicine; Visit Provider Internal Medicine
PROC: 02703ZZ Dilation of Coronary Artery, One Artery, Percutaneous Approach (ICD-10-PCS; principal; 2021-11-23 19:00)
PROC: 02703ZZ Dilation of Coronary Artery, One Artery, Percutaneous Approach (ICD-10-PCS; 2021-11-23 19:00)
DX: T82.855A Stenosis of coronary artery stent, initial encounter (principal); I21.11 ST elevation (STEMI) myocardial infarction involving right coronary artery; Y71.1 Therapeutic (nonsurgical) and rehabilitative cardiovascular devices associated with adverse incidents; I25.10 Atherosclerotic heart disease of native coronary artery without angina pectoris; I10 Essential (primary) hypertension; F17.200 Nicotine dependence, unspecified, uncomplicated; Z91.128 Patient's intentional underdosing of medication regimen for other reason
CPT/HCPCS: 36415; 36416; 71045; 80048; 80053; 82962; 83036; 83880; 84484; 85025; 85347; 85610; 85730; 92920; 93005; 93306; 93454; 94760; 96360; 96361; 96374; 96375; 99152; 99153; 99285; 99291; C1725; C1769; C1887; C1894; J0461; J1644; J2250; J2270; J2405; J3010; J3490; J7030; J7040; Q9967

== ENCOUNTER → 2021-11-28 10:29 | Outpatient (BNVA) | payer OTHER, SELFPAY | PROVIDERS: PCP Family Medicine; Visit Provider Nurse Practitioner Family | DX: I25.10 Atherosclerotic heart disease of native coronary artery without angina pectoris (principal); I10 Essential (primary) hypertension | CPT/HCPCS: 36415; 80048 ==

== ENCOUNTER → 2022-01-09 12:24 | Outpatient (BNVA) | payer MEDICARE, SELFPAY | PROVIDERS: PCP Family Medicine; Visit Provider Internal Medicine | DX: I25.10 Atherosclerotic heart disease of native coronary artery without angina pectoris (principal); I10 Essential (primary) hypertension; F17.200 Nicotine dependence, unspecified, uncomplicated; I25.2 Old myocardial infarction; E11.9 Type 2 diabetes mellitus without complications; Z79.84 Long term (current) use of oral hypoglycemic drugs | CPT/HCPCS: 99214 ==

== ENCOUNTER → 2022-07-10 15:14 | Outpatient (BNVA) | payer MEDICARE, SELFPAY | PROVIDERS: PCP Nurse Practitioner Family; Visit Provider Internal Medicine | DX: I25.10 Atherosclerotic heart disease of native coronary artery without angina pectoris (principal); I10 Essential (primary) hypertension; E11.9 Type 2 diabetes mellitus without complications; F17.200 Nicotine dependence, unspecified, uncomplicated; Z79.82 Long term (current) use of aspirin; Z79.84 Long term (current) use of oral hypoglycemic drugs; I25.2 Old myocardial infarction | CPT/HCPCS: 99214 ==

== ENCOUNTER → 2023-01-08 13:54 | Outpatient (BNVA) | payer MEDICARE, SELFPAY | PROVIDERS: PCP Nurse Practitioner Family; Visit Provider Internal Medicine | DX: I25.10 Atherosclerotic heart disease of native coronary artery without angina pectoris (principal); I10 Essential (primary) hypertension; E11.9 Type 2 diabetes mellitus without complications; F17.200 Nicotine dependence, unspecified, uncomplicated; Z79.84 Long term (current) use of oral hypoglycemic drugs | CPT/HCPCS: 99214 ==

== ENCOUNTER 2023-02-04 09:01 | Outpatient (CLI) | payer MEDICARE, SELFPAY ==
--- NOTE | 2023-02-04 09:25 | CT_ITS ---
WS: [id number] LDCT LUNG CANCER SCREENING TECHNIQUE: Noncontrast CT of the chest with coronal and sagittal reformatted images. CLINICAL INFORMATION: HISTORY OF TOBACCO USE COMPARISON: None. DLP: 106.69 mGy.cm DIvol: Mean CTDIvol: 2.30 (mGy) All CT scans at [facility] use at least one of these dose optimization techniques: automat ed exposure control; mA and/or kV adjustment per patient size (includes targeted exams where dose is matched to clinical indication); or iterative reconstruction. FINDINGS: A few tiny nodules in the RIGHT upper lobe. A few tiny calcified granulomas. Tiny nodule LEFT upper l obe. Normal caliber thoracic aorta. Aortic calcification. Normal coronary calcification. No mediastinal or hilar lymphadenopathy. Calcified mediastinal and RIGHT hilar lymph nodes. No axillary lymphadenopathy. Adrenal glands are normal. Small esophageal hernia. Mild thoracic curve. Hypertrophic changes thoracic spine. IMPRESSION: CT/CT lung screening [id number] LUNG-RADS: 2-Benign Appearance or Behavior FOLLOW UP: 12 Month: Continue annual screening with LDCT
--- NOTE | 2023-02-04 09:27 | USCV_ITS ---
Brice Torres Age: 67 Gender: M : 1955 Exam Date: 02/04/2023 09:31 Ordering Phys: Dena Ann Technologist: CT [place] [facility] [place]: H[place]ORY: Diameter (cm) AP x Transverse x Length Velocity (cm/s) Waveform Prox Aorta: 1.74 x 1.77 x 82.60 Mid Aorta: 1.45 x 1.42 x 104.20 Distal Aorta: 1.63 x 1.39 x 79.50 Right Iliac Prox: x x Left Iliac Prox: x x Stent Prox Landing x x Aneurysmal Sac Max x x Lt Lat Sac Dim Rt Lat Sac Dim Stent Dist Landing x x Right Iliac Stent x x Left Iliac Stent x x Right Renal Art Left Renal Art FINDINGS: Mild diffuse plaques in the abdominal aorta Normal abdominal aortic dimensions Normal Doppler flow velocities CONCLUSIONS No evidence of abdominal aortic aneurysm Mild diffuse plaques in the abdominal aorta Dr Ryan Yin MD FACC (Electronically Signed) Final Date: 05 February 2023 19:56 S
== END 2023-02-04 09:02 | disposition home or self-care (01) ==
LOC: RAD 09:01
PROVIDERS: PCP Nurse Practitioner Family; Visit Provider Nurse Practitioner Family
DX: Z12.2 Encounter for screening for malignant neoplasm of respiratory organs (principal); Z87.891 Personal history of nicotine dependence; Z13.6 Encounter for screening for cardiovascular disorders; I70.0 Atherosclerosis of aorta
CPT/HCPCS: 71271; 76706

== ENCOUNTER 2023-03-30 19:32 | Emergency (ER) | payer MEDICARE, SELFPAY ==
[2023-03-30 19:33] VITALS: BP 100/61; PULSE 85; RESP 18; TEMP 36.4; O2SAT 95; BMI 34.0
--- NOTE | 2023-03-30 20:10 | XRR_ITS ---
PROCEDURE INFORMATION: Exam: XR Chest Exam date and time: 03/30/2023 8:20 PM Age: 67 years old Clinical indication: Cough and shortness of breath; Additional info: Near syncope TECHNIQUE: Imaging protocol: Radiologic exam of the chest. Views: 1 view. COMPARISON: CT lung screening [id number] 02/04/2023 9:55 AM FINDINGS: Lungs: Unremarkable. No consolidation. Pleural spaces: Unremarkable. No pleural effusion. No pneumothorax. Heart/Mediastinum: Unremarkable. No cardiomegaly. Bones/joints: Unremarkable. XR/XR chest 1V portable [id number] IMPRESSION: No acute findings.
--- NOTE | 2023-03-30 20:10 | ECG_ITS ---
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 Measurements Intervals [place] Rate: 66 P: 37 WY: 154 QRS: -38 QRSD: 122 T: 195 QT: 424 QTc: 444 Interpretive Statements SINUS RHYTHM RIGHT BUNDLE BRANCH BLOCK [120+ ms QRS DURATION, UPRIGHT V1, 40+ ms S IN I/aVL/V4/V5/V6] INFERIOR MYOCARDIAL INFARCTION , PROBABLY OLD [40+ ms Q WAVE AND/OR ST/T ABNORMALITY IN II/aVF] MODERATE T-WAVE ABNORMALITY, CONSIDER LATERAL ISCHEMIA [-0.1+ mV T-WAVE IN I/aVL/V5/V6] Compared to ECG 11/24/2021 02:55:39 No significant changes Electronically Signed On 03-30-2023 22:57:24 [employer] by Travis Zaidi M.D. [id number]
[2023-03-30 20:22] VITALS: BP 111/59; PULSE 77; O2SAT 97
[2023-03-30] MEDS: ondansetron 2 mg/ML SDV 2 mL 4 MG IVP (20:25)
--- NOTE | 2023-03-30 20:29 | ED_ITS ---
HPI - Dizziness 2 General: Chief Complaint: Dizziness Stated Complaint: DIZZINESS Time Seen by Provider: 03/30/23 19:36 History of Present Illness: HPI Narrative: Brice Torres is a 67-year-old man that presents to the emergency department with near syncope. Patient states that he has been over at a friend's house today feeling fine but while at home he was at rest when he tried to get up for a drink of water. States he felt like he was going to pass out and became nauseated and diaphoretic. Patient denies any chest pain or shortness of breath He does have a cardiac history and has run out of some of his medication including furosemide. He has some edema in lower extremities. Associated symptoms: Reports diaphoresis; Denies change in hearing, chest pain, chills, ear discharge, headache(s), malaise, nausea, nasal congestion, palpitations, tinnitus or vomiting Associated neuro symptoms: Deny confusion, dysphagia or numbness in extremities Review of Systems 2 General: Reports: 10 or more systems reviewed and unremarkable except in HPI and below Const: Reports: fatigue and diaphoresis; Denies: fever(s), chills, change in appetite, change in weight or malaise Eyes: Denies: change in vision, eye discomfort, eye discharge or eye redness ENMT: Denies: throat pain, enlarged tonsils, odynophagia, hoarseness, ear or mastoid pain, ear discharge, change in hearing, tinnitus, nasal discharge, nasal congestion, post nasal drip or sinus pain Card: Reports: edema, swelling of feet/ankles, lightheadedness and pre- syncope; Denies: chest pain, palpitations, irregular heart rhythm, dyspnea on exertion, orthopnea or leg pain with exertion Resp: Denies: dyspnea, productive cough, non-productive cough, wheezing, stridor or chest congestion GI: Denies: abdominal pain, nausea, vomiting, dysphagia, diarrhea, constipation, bloating, GI cramping or hematochezia : Denies: flank pain, dysuria, urinary frequency, urinary urgency, urinary hesitancy, oliguria or hematuria Musc: Denies: neck pain, back pain, extremity pain, joint pain, joint swelling, joint redness, joint warmth or muscle weakness Skin/Breast: Denies: rash, pruritus, erythema, photosensitivity or new lesions Neuro: Denies: headache(s), numbness in extremities, weakness in extremities, sensory changes, lack of coordination, difficulty walking, frequent falls, dizziness, confusion, Slurred speech present, difficulty communicating thoughts, seizure-like activity or involuntary movements Endo: Denies: polyuria, polydipsia or tired all the time Danish/Lymph: Denies: easy bruising or easy bleeding PFSH ED 2 PFSH: Medical History CAD (coronary artery disease) Hypertension ST elevation myocardial infarction (STEMI) Family History Other Diabetes Social History Smoking and tobacco/nicotine status: current every day tobacco/nicotine user Physical Exam 2 Const: COMMON NORMALS: no acute distress, patient oriented x3 and alert G ENERAL APPEARANCE: cooperative ORIENTATION/CONSCIOUSNESS: Yes awake, Yes oriented to person, Yes oriented to place and Yes oriented to time HENMT: COMMON NORMALS: normocephalic and atraumatic HEAD & SCALP: n ormocephalic and atraumatic FACE & SINUS: normal facial exam MOUTH: Normal oral and palatal mucosa present THROAT: posterior oropharynx normal Eye: COMMON NORMALS: Equal, round and reactive pupils present, EOMs intact bilaterally, conjunctivae normal and no scleral icterus GENERAL EYE: a ppearance normal, both eyes and all related structures ALIGNMENT: Yes alignment normal PERIORBITAL: periorbital findings normal CONJUNCTIVA: Yes conjunctivae normal PUPIL: Yes Equal, round and reactive pupils present Neck/C-Spine: COMMON NORMALS: full ROM GENERAL: Yes normal visual inspection Lymph: LYMPHATIC: no lymphadenopathy noted Chest: COMMONS NORMALS: normal inspection of the chest Breast/axilla inspection: Yes no chest deformity, asymmetry, normal contours, no nodules, masses, tenderness Resp: COMMON NORMALS: normal respiratory effort, No retractions, No use of accessory muscles and clear to auscultation bilaterally EFFORT & INSPECTION: Yes able to speak in complete sentences and Yes symmetric chest movement A USCULTATION: clear to auscultation bilaterally Cardio: COMMON NORMALS: regular rate, regular rhythm and Peripheral pulses 2+ throughout RATE: regular rate RHYTHM: regular rhythm PERIPHERAL PULSES: Peripheral pulses 2+ throughout GI: COMMON NORMALS: Normal to inspection, nondistended, normoactive bowel sounds present, Soft to palpation, non-tender and No hepatosplenomegaly present INSPECTION: Yes normal to inspection AUSCULTATION: Yes normoactive bowel sounds PALPATION: Yes Soft to palpation and Yes No hepatosplenomegaly present RECTAL EXAM: Yes deferred Extremity: COMMON NORMALS: normal to inspection GENERAL: Yes normal exam except as noted Neuro: COMMON NORMALS: patient oriented x3 SENSORIUM/ORIENTATION: Yes alert, Yes oriented to person, Yes oriented to place and Yes oriented to time CRANIAL NERVES: Yes CN normal except as noted Psych: COMMON NORMALS: mental status grossly normal, Normal thought process present, cooperative, activity/motor behavior normal, denies homicidal ideation and denies suicidal ideation THOUGHT PROCESS: Normal thought process present Skin: COMMON NORMALS: no rashes or lesions noted, no wounds and turgor normal GENERAL SKIN EXAM: no rashes or lesions noted and turgor normal Course 2 Vital Signs: Vital signs: Vital Signs Temperature 97.6 F 03/30/23 19:33 Pulse Rate 82 03/31/23 00:03 Respiratory Rate 16 03/31/23 00:03 Blood Pressure 103/64 03/31/23 00:03 Pulse Oximetry 97 03/31/23 00:03 Oxygen Delivery Me thod Room Air 03/30/23 22:00 MDM - Dizziness Medical Decision Making Mr. Torres was evaluated in the emergency department for near syncope and dizziness. Differential diagnosis includes an arrhythmia AMI, CVA, CHF, vertigo, viral or bacterial infection Patient underwent EKG, laboratory evaluation and CT imaging. The EKGs were performed at 2215 and 2250 and reveal a right bundle branch block ventricular rate of 66 beats a minute and a QTc of 437. Both EKGs were reviewed by Dr. Martinez. There was question of moderate T wave abnormality but findings appear to be old. His initial troponins were in the 20s but this was below his previous troponins and his 2-hour delta was -1. Furthermore his creatinine was mildly elevated. Does have a mildly elevated creatinine and mildly elevated BNP. Patient was treated with some fluids and he felt better. He was not found to be orthostatic. Ambulated without difficulty. We did obtain a CT chest abdomen pelvis which revealed no significant findings but there is evidence of a thickened bladder wall and he does have a leukocytosis of 20,000 however, his urinalysis was unremarkable.. I reviewed findings with Dr. Martinez Patient is get a follow-up with his primary care doctor regarding the bladder wall thickening. He is going to go home and will monitor his symptoms. He will return should he develop any new concerning or worsening symptoms. He was fed and ambulated here in the emergency department and appears to be stable for discharge. Patient is agreeable with plan Lab Data 03/30/23 20:52 03/30/23 20:52 Radiology Impressions Chest X-Ray 03/30/23 20:10 IMPRESSION: No acute findings. Chest/Abdomen/Pelvis CT 03/30/23 23:02 IMPRESSION: No evidence of pulmonary embolism. IMPRESSION: 1. Hepatomegaly 2. Question of focal urinary bladder wall thickening. Further evaluation or urologic follow-up suggested. 3. No acute finding Laboratory Results WBC 20.20 10^3/uL (3.29-11.43) H 03/30/23 20:52 RBC 5.36 10^6/uL (3.85-5.65) 03/30/23 20:52 Hgb 15.40 g/dL (11.27-16.99) 03/30/23 20:52 Hct 47.9 % (37-53) 03/30/23 20:52 MCV 89.4 fl (82-101) 03/30/23 20:52 MCH 28.7 pg (27-33) 03/30/23 20:52 MCHC 32.2 g/dL (30-55) 03/30/23 20:52 RDW 14.5 % (12.1-15.1) 03/30/23 20:52 Plt Count 277 10^3/cmm (157-399) 03/30/23 20:52 MPV 10.8 fL (7.4-10.4) H 03/30/23 20:52 Neut % (Auto) 84.7 % 03/30/23 20:52 Lymph % (Auto) 6.5 % 03/30/23 20:52 [place] % (Auto) 7.9 % 03/30/23 20:52 Eos % (Auto) 0.1 % 03/30/23 20:52 Baso % (Auto) 0.2 % 03/30/23 20:52 Neut # (Auto) 17.09 10^3/uL (1.8-7.7) H 03/30/23 20:52 Lymph # (Auto) 1.3 10^3/uL (0.8-4.8) 03/30/23 20:52 [place] # (Auto) 1.6 10^3/uL (0.2-0.9) H 03/30/23 20:52 Eos # (Auto) 0.0 10^3/uL (0.0-0.8) 03/30/23 20:52 Baso # (Auto) 0.1 10^3/uL (0.0-0.1) 03/30/23 20:52 Nucleated RBC % (auto) 0 % 03/30/23 20:52 Nucleated RBCs # 0.0 /100WBC 03/30/23 20:52 Sodium 138 mmol/L (136-145) 03/30/23 20:52 Potassium 4.5 mmol/L (3.5-5.1) 03/30/23 20:52 Chloride 103 mmol/L (98-107) 03/30/23 20:52 Carbon Dioxide 24 mmol/L (22-29) 03/30/23 20:52 Anion Gap 15.5 (5-19) 03/30/23 20:52 BUN 11 mg/dL (8-23) 03/30/23 20:52 Creatinine 1.3 mg/dL (0.7-1.2) H 03/30/23 20:52 GFR Calculation 55.2 mL/min (90-130) L 03/30/23 20:52 Glucose 146 mg/dL (65-115) H 03/30/23 20:52 Calculated Osmolality 288 mOsm/kg (285-295) 03/30/23 20:52 Calcium 8.9 mg/dL (8.5-10.5) 03/30/23 20:52 Total Bilirubin 0.4 mg/dL (0.15-1.2) 03/30/23 20:52 AST 13 U/L (0-40) 03/30/23 20:52 ALT 13 U/L (0-41) 03/30/23 20:52 Alkaline Phosphatase 88 U/L (40-130) 03/30/23 20:52 Troponin T Baseline 28 ng/L (0-15) H 03/30/23 20:52 Troponin T 120 Minute 26.70 ng/L (0-15) H 03/30/23 22:54 Delta Troponin T -1.30 ABS# (0-10) L 03/30/23 22:54 NT-Pro-B Natriuret Pep 496 pg/mL (0-125) H 03/30/23 20:52 Total Protein 6.1 g/dL (6.6-8.7) L 03/30/23 20:52 Albumin 4.2 g/dL (3.5-5.2) 03/30/23 20:52 Globulin 1.9 g/dL (1.3-4.6) 03/30/23 20:52 Urine Color Yellow (Yellow) 03/31/23 00:25 Urine Appearance Clear (CLEAR) 03/31/23 00:25 Urine pH 6 (5-7) 03/31/23 00:25 Ur Specific [place] 1.005 (1.005-1.030) 03/31/23 00:25 Urine Protein 1+ (Negative) H 03/31/23 00:25 Urine Glucose (UA) Norm (Normal) 03/31/23 00:25 Urine Ketones Negative (Negative) 03/31/23 00:25 Urine Blood Neg (Negative) 03/31/23 00:25 Urine Nitrate Negative (Negative) 03/31/23 00:25 Urine Bilirubin Neg (Negative) 03/31/23 00:25 Urine Urobilinogen Neg mg/dL (Negative) 03/31/23 00:25 Ur Leukocyte Esterase Negative (Negative) 03/31/23 00:25 Urine RBC None /hpf (0-2) 03/31/23 00:25 Urine WBC 0-4 /hpf (0-5) H 03/31/23 00:25 Ur Squamous Epith Cells 0-4 /hpf (0-5) H 03/31/23 00:25 Ur Transition Epith Cell 0-4 /hpf 03/31/23 00:25 Amorphous Sediment Not Reportable 03/31/23 00:25 Urine Bacteria Trace /hpf (NONE) 03/31/23 00:25 All radiology interpretation(s) finalized by discharge Discharge Plan Discharge Patient Disposition: Home Clinical Impression: Near syncope, Bladder wall thickening, Leukocytosis Condition: Stable Prescriptions: No Action bupropion HCl (smoking deter) 150 mg tablet extended release 12 hr 150 mg PO BID magnesium oxide 500 mg capsule 500 mg PO DAILY furosemide [Lasix] 40 mg tablet 40 mg PO DAILY Qty: 30 0RF metformin 500 mg tablet 500 mg PO DAILY lisinopril 20 mg tablet See Rx Instructions .ROUTE .COMPLEX Qty: 90 2RF Dose Instruction: TAKE 1 TABLET BY MOUTH DAILY Rx Instructions: TAKE 1 TABLET BY MOUTH DAILY clopidogrel 75 mg tablet 75 mg PO DAILY Qty: 90 3RF atorvastatin 40 mg Tablet 80 mg PO BEDTIME Qty: 90 3RF aspirin 81 mg Tablet,Delayed Release (Dr/Ec) 81 mg PO DAILY Qty: 90 2RF metoprolol tartrate 25 mg Tablet 25 mg PO BID@0900,2100 Qty: 90 3RF Discharge Orders: Discharge ED (Routine); Ordered 03/31/23 Ordered By: Solo Elizabeth Referrals: Dena Ann FNP [Primary Care Provider] - Discharge Diet: Advance as tolerated Discharge Activity: Resume usual activity Patient Instructions: Near Syncope (ED), Opioid Safety, Pain Management Activity Restrictions/Additional Instructions: Please return to the emergency department for new, concerning, worsening symptoms Coding Level of Care Code ED Molder for Lanette Goldsmith
--- NOTE | 2023-03-30 20:29 | PC.NURSE ---
PROVIDER ORDERED 500ML NS. PT HAD 500ML NS REMAINING FROM EMS LITER. PROVIDER OK'D GIVING THE REMAINING 500ML FROM EMS BAG.
[2023-03-30 20:30] VITALS: BP 111/59; PULSE 77; O2SAT 97
[2023-03-30 21:06] LABS: Basophils # 0.1 10^3/uL (0.0-0.1); Basophils % 0.2 %; Eosinophils % 0.1 %; Hematocrit 47.9 % (37-53); Lymphocytes # 1.3 10^3/uL (0.8-4.8); Lymphocytes % 6.5 %; Mean Corpuscular HGB Conc 32.2 g/dL (30-55); Mean Corpuscular Hemoglobin 28.7 pg (27-33); Mean Corpuscular Volume 89.4 fl (82-101); Mean Platelet Volume 10.8 fL (7.4-10.4); Monocytes # 1.6 10^3/uL (0.2-0.9); Monocytes % 7.9 %; Neutrophils # 17.09 10^3/uL (1.8-7.7); Neutrophils % 84.7 %; Nucleated Red Blood Cells % 0 %; Platelet Count 277 10^3/cmm (157-399); Red Blood Count 5.36 10^6/uL (3.85-5.65); Red Cell Distribution Width 14.5 % (12.1-15.1)
[2023-03-30 21:30] VITALS: BP 111/60; PULSE 79; O2SAT 94
[2023-03-30 21:34] LABS: Alanine Aminotransferase 13 U/L (0-41); Albumin Level 4.2 g/dL (3.5-5.2); Alkaline Phosphatase 88 U/L (40-130); Anion Gap 15.5 (5-19); Aspartate Amino Transferase 13 U/L (0-40); Blood Urea Nitrogen 11 mg/dL (8-23); Calcium 8.9 mg/dL (8.5-10.5); Carbon Dioxide 24 mmol/L (22-29); Chloride 103 mmol/L (98-107); Globulin 1.9 g/dL (1.3-4.6); Glomerular Filtration Rate 55.2 mL/min (90-130); Glucose 146 mg/dL (65-115); NT Pro B Type Natriuretic Pept 496 pg/mL (0-125); Osmolality Calculated 288 mOsm/kg (285-295); Potassium 4.5 mmol/L (3.5-5.1); Sodium 138 mmol/L (136-145); Total Bilirubin 0.4 mg/dL (0.15-1.2); Total Protein 6.1 g/dL (6.6-8.7)
[2023-03-30 21:50] LABS: Troponin(5th) Baseline 28 ng/L (0-15)
--- NOTE | 2023-03-30 21:51 | PC.NURSE ---
Orthostatic vital signs as follows: laying HR 78 BP 121/65, sitting HR 86 BP 103/59, standing HR 77 BP 110/65. Done by ERICK Mason.
[2023-03-30 22:00] VITALS: BP 110/65; PULSE 79; O2SAT 98
--- NOTE | 2023-03-30 22:50 | ECG_ITS ---
[facility] Test Date: 2023-03-30 Pat Name: Brice Torres Department: Room: Gender: Male Preassembler And Inspector: : [id number] Requested By: Solo Holt Order Number: [id number] Melissa MD: Travis Zaidi M.D. Measurements Intervals [place] Rate: 69 P: 40 [place]: 152 QRS: -49 QRSD: 122 T: 189 QT: 413 QTc: 444 Interpretive Statements SINUS RHYTHM RIGHT BUNDLE BRANCH BLOCK [120+ ms QRS DURATION, UPRIGHT V1, 40+ ms S IN I/aVL/V4/V5/V6] INFERIOR MYOCARDIAL INFARCTION , PROBABLY OLD [40+ ms Q WAVE AND/OR ST/T ABNORMALITY IN II/aVF] MODERATE T-WAVE ABNORMALITY, CONSIDER LATERAL ISCHEMIA [-0.1+ mV T-WAVE IN I/aVL/V5/V6] Compared to ECG 03/30/2023 22:15:03 No significant changes Electronically Signed On 03-30-2023 23:00:07 INTELLIGENCE CLERK by Travis Zaidi M.D. [email or web address]
--- NOTE | 2023-03-30 23:02 | CTR_ITS ---
PROCEDURE INFORMATION: Exam: CTA Chest With Contrast Exam date and time: 03/30/2023 11:23 PM Age: 67 years old Clinical indication: Other: Hypotension. Elevated troponin, wbc, and creat. Cough and shortness of breath; Prior surgery; Surgery date: 6+ months; Surgery type: Coronary stent; Patient HX: Cough with SOB and hypotension. Elevated creat, base troponin, and wbc of 20k. ; Additional info: Near syncope, hypotension, TECHNIQUE: Imaging protocol: Computed tomographic angiography of the chest with contrast. Exam focused on the arteries. 3D rendering (Not supervised by radiologist): MIP and/or 3D reconstructed images were created by the technologist. Radiation optimization: All CT scans at this facility use at least one of these dose optimization techniques: automated exposure control; mA and/or kV adjustment per patient size (includes targeted exams where dose is matched to clinical indication); or iterative reconstruction. Contrast material: OMNI 350; Contrast volume: 100 ml; Contrast route: INTRAVENOUS (IV); REPORTING DATA: Count of CT and Cardiac NM exams in prior 12 months: This patient has received [address] and 0 known cardiac nuclear medicine studies in the 12 months prior to the current study. COMPARISON: CT lung screening [id number] 02/04/2023 9:55 AM RADIATION DOSE METRICS: Total DLP (mGy-cm): 1288.69 FINDINGS: Pulmonary arteries: There is no evidence of filling defects within the pulmonary arterial circulation to suggest pulmonary embolism. There is no evidence of filling defects within the pulmonary arterial circulation to suggest pulmonary embolism. Aorta: There is no thoracic aortic aneurysm or dissection. Lungs: There is no acute infiltrate. Pleural spaces: Unremarkable. No pneumothorax. No pleural effusion. Heart: Heart is within normal limits of size. Lymph nodes: There are calcified hilar and mediastinal lymph nodes in keeping with old granulomatous disease. There is mild hilar adenopathy not significantly changed. Bones/joints: Unremarkable. No acute fracture. Soft tissues: Unremarkable. PROCEDURE INFORMATION: Exam: CT Abdomen And Pelvis With Contrast Exam date and time: 03/30/2023 11:23 PM Age: 67 years old Clinical indication: Other: Hypotension. Elevated troponin, wbc, and creat. Cough and shortness of breath; Prior surgery; Surgery date: 6+ months; Surgery type: Coronary stent; Patient HX: Cough with SOB and hypotension. Elevated creat, base troponin, and wbc of 20k. ; Additional info: Near syncope, hypotension, TECHNIQUE: Imaging protocol: Computed tomography of the abdomen and pelvis with contrast. Radiation optimization: All CT scans at this facility use at least one of these dose optimization techniques: automated exposure control; mA and/or kV adjustment per patient size (includes targeted exams where dose is matched to clinical indication); or iterative reconstruction. Contrast material: OMNI 350; Contrast volume: 100 ml; Contrast route: INTRAVENOUS (IV); REPORTING DATA: Count of CT and Cardiac NM exams in prior 12 months: This patient has received [address] and 0 known cardiac nuclear medicine studies in the 12 months prior to the current study. COMPARISON: CT lung screening [id number] 02/04/2023 9:55 AM RADIATION DOSE METRICS: Total DLP (mGy-cm): 1288.69 FINDINGS: Liver: There is no focal abnormality within the liver. There is moderate enlargement of the liver. Liver is 20 cm in height. Gallbladder and bile ducts: The gallbladder is normal. Pancreas: The pancreas is normal. Spleen: The spleen is normal. Adrenal glands: The adrenal glands are normal. Kidneys and ureters: The kidneys are normal. There is no evidence of hydronephrosis. There is no evidence of renal or ureteral calcifications. Stomach and bowel: There is no evidence of colitis/diverticulitis. There is no evidence of intestinal obstruction. Appendix: A normal appendix is identified. Intraperitoneal space: There is no evidence of free intraperitoneal fluid. Vasculature: The aorta demonstrates moderate atherosclerotic calcification. Lymph nodes: There is no evidence of lymphadenopathy. Urinary bladder: There is asymmetric thickening of the urinary bladder which is more prominent along the right lateral and posterior wall. Please correlate with urinalysis findings. Consider further evaluation to exclude bladder tumor or other bladder pathology. Reproductive: The prostate demonstrates mild nonspecific enlargement. The seminal vesicles are normal. Bones/joints: Unremarkable. No acute fracture. Soft tissues: There are small bilateral inguinal hernias containing only fat. CT/CT angio chest w abd pel w con IMPRESSION: No evidence of pulmonary embolism. IMPRESSION: 1. Hepatomegaly 2. Question of focal urinary bladder wall thickening. Further evaluation or urologic follow-up suggested. 3. No acute finding
[2023-03-30] MEDS: iohexol 350 mg/mL 500 mL Btl (per mL) IV (23:25)
[2023-03-31 00:03] VITALS: BP 103/64; PULSE 82; RESP 16; O2SAT 97
[2023-03-31 01:02] LABS: Add Urine Microscopic? YES; Bilirubin Urine Neg (Negative); Blood Urine Neg (Negative); Glucose Urine UA Norm (Normal); Ketones Urine Negative (Negative); Leukocyte Esterase Urine Negative (Negative); Nitrate Urine Negative (Negative); Protein Urine 1+ (Negative); Specific Gravity, Urine 1.005 (1.005-1.030); Urine Appearance Clear (CLEAR); Urine Color Yellow (Yellow); Urobilinogen Urine Neg (Negative); pH Urine 6 (5-7)
[2023-03-31 01:03] LABS: Add Urine Culture? No; Bacteria Urine TRACE /hpf; Squamous Epithelial Cell Urine 0-4 /hpf (0-5); Transitional Epi Cells Urine 0-4 /hpf; WBC Urine 0-4 /hpf (0-5)
[2023-03-31 01:28] VITALS: BP 103/64; PULSE 82; RESP 16; TEMP 36.4; O2SAT 97
== END 2023-03-31 01:34 | disposition home or self-care (01) ==
PROVIDERS: Emergency Provider Nurse Practitioner; PCP Nurse Practitioner Family
DX: R55 Syncope and collapse (principal); D72.829 Elevated white blood cell count, unspecified; N32.89 Other specified disorders of bladder; Z79.02 Long term (current) use of antithrombotics/antiplatelets; Z79.82 Long term (current) use of aspirin; Z79.84 Long term (current) use of oral hypoglycemic drugs; R16.0 Hepatomegaly, not elsewhere classified; Z72.0 Tobacco use; I25.10 Atherosclerotic heart disease of native coronary artery without angina pectoris; I10 Essential (primary) hypertension; I25.2 Old myocardial infarction
CPT/HCPCS: 36415; 71045; 71275; 74177; 80053; 81001; 83880; 84484; 85025; 93005; 96374; 99285; J2405; Q9967

== ENCOUNTER → 2023-07-09 15:03 | Outpatient (BNVA) | payer MEDICARE, SELFPAY | PROVIDERS: PCP Nurse Practitioner Family; Visit Provider Internal Medicine | DX: I25.10 Atherosclerotic heart disease of native coronary artery without angina pectoris (principal); I10 Essential (primary) hypertension; E11.9 Type 2 diabetes mellitus without complications; F17.210 Nicotine dependence, cigarettes, uncomplicated; Z79.84 Long term (current) use of oral hypoglycemic drugs | CPT/HCPCS: 99214 ==

== ENCOUNTER → 2024-01-21 15:13 | Outpatient (BNVA) | payer MEDICARE, SELFPAY | PROVIDERS: PCP Nurse Practitioner Family; Visit Provider Internal Medicine | DX: I25.10 Atherosclerotic heart disease of native coronary artery without angina pectoris (principal); I10 Essential (primary) hypertension; E11.9 Type 2 diabetes mellitus without complications; Z79.84 Long term (current) use of oral hypoglycemic drugs; I25.2 Old myocardial infarction; F17.200 Nicotine dependence, unspecified, uncomplicated | CPT/HCPCS: 99214 ==

== ENCOUNTER → 2024-10-19 13:18 | Outpatient (BNVA) | payer MEDICARE, SELFPAY | PROVIDERS: PCP Nurse Practitioner Adult Health; Visit Provider Internal Medicine | DX: I25.10 Atherosclerotic heart disease of native coronary artery without angina pectoris (principal); I10 Essential (primary) hypertension; E11.9 Type 2 diabetes mellitus without complications; Z79.84 Long term (current) use of oral hypoglycemic drugs; Z79.02 Long term (current) use of antithrombotics/antiplatelets; Z79.82 Long term (current) use of aspirin; F17.200 Nicotine dependence, unspecified, uncomplicated; I25.2 Old myocardial infarction | CPT/HCPCS: 99213 ==

== ENCOUNTER → 2025-03-14 12:53 | Outpatient (BNVA) | payer MEDICARE, SELFPAY | PROVIDERS: PCP Nurse Practitioner Adult Health; Visit Provider Podiatrist Foot & Ankle Surgery | DX: L60.3 Nail dystrophy (principal) | CPT/HCPCS: 99203 ==